=== PATIENT | male | born 1935 | race Caucasian/White ===

== ENCOUNTER → 2018-03-09 | Outpatient (CLI) | payer MEDICARE | END | disposition home or self-care (01) | LOC: ROC 09:02 | PROVIDERS: ATTEND Radiology Radiation Oncology | DX: Z08 Encounter for follow-up examination after completed treatment for malignant neoplasm (principal); C61 Malignant neoplasm of prostate | CPT/HCPCS: G0463 ==

== ENCOUNTER → 2018-06-05 | Outpatient (CLI) | payer MEDICARE | END | disposition home or self-care (01) | LOC: ROC 11:23 | PROVIDERS: ATTEND Radiology Radiation Oncology | DX: C61 Malignant neoplasm of prostate (principal) | CPT/HCPCS: G0463 ==

== ENCOUNTER → 2018-07-14 | Outpatient (CLI) | payer MEDICARE ==
[~2018-07-14] MED LIST: OMNIPAQUE 350 MG/ML, 100ML BOTTLE ONE
== END | disposition home or self-care (01) ==
LOC: PETCFH 07:55
PROVIDERS: ATTEND Urology
DX: M19.011 Primary osteoarthritis, right shoulder (principal); M19.012 Primary osteoarthritis, left shoulder; M16.0 Bilateral primary osteoarthritis of hip; M46.90 Unspecified inflammatory spondylopathy, site unspecified; M17.0 Bilateral primary osteoarthritis of knee
CPT/HCPCS: 72193; 78306; A9503; Q9967

== ENCOUNTER → 2018-11-27 | Outpatient (CLI) | payer MEDICARE | END | disposition home or self-care (01) | LOC: ROC 07:12 | PROVIDERS: ATTEND Radiology Radiation Oncology | DX: Z08 Encounter for follow-up examination after completed treatment for malignant neoplasm (principal); C61 Malignant neoplasm of prostate | CPT/HCPCS: G0463 ==

== ENCOUNTER → 2018-12-07 | Outpatient (CLI) | payer MEDICARE ==
[~2018-12-07] MED LIST changes: +ASPI81TA45 PO; +IBUP200C8 PO; +LOSA50TA14 PO; +METF500T17 PO; +MULT-717 PO; +NAPR220T77 PO; +OMEP40CA6 PO; -OMNIPAQUE 350 MG/ML, 100ML BOTTLE ONE; +VITAMIN D PO
[2018-12-07 10:26] LABS: BASOPHILS # (AUTO) 0.05 x10^3/uL (0-0.1); BASOPHILS % (AUTO) 1 % (0-1); EOSINOPHILS # (AUTO) 0.12 x10^3/uL (0-0.4); EOSINOPHILS % (AUTO) 2 % (1-7); LYMPHOCYTES # (AUTO) 1.48 x10^3/uL (1-3.4); LYMPHOCYTES % (AUTO) 24 % (22-44); MD NO; MEAN CORPUSCULAR HEMOGLOBIN 31.4 pg (27.5-34.5); MEAN CORPUSCULAR HGB CONC 33.1 g/dL (33.2-36.2); MEAN CORPUSCULAR VOLUME 95.1 fL (81-97); MEAN PLATELET VOLUME 8.2 fL (7.4-10.4); MONOCYTES # (AUTO) 0.56 x10^3/uL (0.2-0.8); MONOCYTES % (AUTO) 9 % (2-9); NEUTROPHILS # (AUTO) 4.09 x10^3/uL (1.8-6.8); NEUTROPHILS % (AUTO) 65 % (42-75); PLATELET COUNT 323 x10^3/uL (130-400); RED BLOOD COUNT 5.27 x10^6/uL (4.38-5.82); RED CELL DISTRIBUTION WIDTH 13.6 % (9.4-14.8)
[2018-12-07 10:30] LABS: MICROSCOPIC NOT IND
[2018-12-07 10:31] LABS: CULTURE INDICATED? NO
[2018-12-07 10:38] LABS: ALANINE AMINOTRANSFERASE 18 U/L (12-78); ALBUMIN 3.8 g/dL (3.4-5.0); ANION GAP 5 mmol/L (5-15); CALCIUM 9.1 mg/dL (8.5-10.1); CHLORIDE 108 mmol/L (98-107); CREATININE 0.99 mg/dL (0.7-1.3)
[2018-12-07 10:40] LABS: ALKALINE PHOSPHATASE 77 U/L (45-117); BILIRUBIN,TOTAL 0.6 mg/dL (0.2-1.0); TOTAL PROTEIN 7.3 g/dL (6.4-8.2)
== END | disposition home or self-care (01) ==
LOC: STAR 09:26
PROVIDERS: ATTEND Orthopaedic Surgery
DX: Z01.818 Encounter for other preprocedural examination (principal); M16.11 Unilateral primary osteoarthritis, right hip
CPT/HCPCS: 36415; 80053; 81003; 85025; 87081; 87147; 93005

== ENCOUNTER 2018-12-18 05:26 | Inpatient (IN) | payer MEDICARE ==
[~2018-12-18] VITALS: Ht 175.3 cm; Wt 85.4 kg
[2018-12-18] MEDS ORDERED: TRANEXAMIC ACID 100 MG/ML, 10ML ONE (06:21)
[2018-12-18] MEDS ORDERED: KETOROLAC 60 MG/2 ML ONE (06:21)
[2018-12-18] MEDS ORDERED: EPINEPHRINE 1 MG/ML, 1ML ONE (06:21)
[2018-12-18] MEDS ORDERED: SODIUM CHLORIDE 0.9% 50 ML ONE (06:21)
[2018-12-18] MEDS ORDERED: VANCOMYCIN 1,000 MG ONE (06:21)
[2018-12-18] MEDS ORDERED: ROPIvacaine/PF 0.2%, 20 ML ONE (06:21)
[2018-12-18] MEDS ORDERED: LACTATED RINGERS 1,000 ML IV SCH (06:52)
[2018-12-18 06:53] VITALS: BP 165/95
[2018-12-18] MEDS ORDERED: MIDAZOLAM 1 MG/ML, 2ML ONE (08:16)
[2018-12-18] MEDS ORDERED: ONDANSETRON 2MG/ML, 2ML ONE (08:17)
[2018-12-18] MEDS ORDERED: WATER-INJECTION,STERILE 10 ML IV ONE (08:17)
[2018-12-18] MEDS ORDERED: CEFAZOLIN 1,000 MG ONE (08:17)
[2018-12-18] MEDS ORDERED: FENTANYL PF 250 MCG/5ML ONE (08:17)
[2018-12-18] MEDS ORDERED: ROCURONIUM 10MG/ML,5ML ONE (08:17)
[2018-12-18] MEDS ORDERED: PROPOFOL 10 MG/ML, 20ML ONE (08:17)
[2018-12-18] MEDS ORDERED: DEXAMETHASONE 4 MG/ML, 1ML ONE (08:17)
[2018-12-18] MEDS ORDERED: LIDOCAINE-MPF 2% ,5ML ONE (08:17)
[2018-12-18] MEDS ORDERED: APREPITANT 40 MG CAPSULE ONE ×2 (09:00)
[2018-12-18] MEDS ORDERED: GABAPENTIN 300 MG CAPSULE ONE ×2 (09:01)
[2018-12-18] MEDS ORDERED: KETAMINE 100 MG/ML, 5ML ONE (09:13)
[2018-12-18] MEDS ORDERED: PROMETHAZINE 25 MG/ML, 1ML IV PRN (10:00)
[2018-12-18] MEDS ORDERED: HALOPERIDOL 5 MG/ML IV PRN (10:00)
[2018-12-18] MEDS ORDERED: LABETALOL 5MG/ML, 20ML IV PRN (10:00)
[2018-12-18] MEDS ORDERED: OXYcodone 5 MG/5 ML ORAL.SOL UDC PO PRN (10:00)
[2018-12-18] MEDS ORDERED: MEPERIDINE/PF 25MG/0.5ML IVPush PRN (10:00)
[2018-12-18] MEDS ORDERED: MAGNESIUM HYDROXIDE 8%, 30ML UDC PO PRN (11:00)
[2018-12-18] MEDS ORDERED: DIAZEPAM 5 MG TABLET PO PRN (11:00)
[2018-12-18] MEDS ORDERED: ONDANSETRON 2MG/ML, 2ML IV PRN (11:00)
[2018-12-18] MEDS ORDERED: BISACODYL 10 MG SUPP PR PRN (11:00)
[2018-12-18] MEDS ORDERED: ACETAMINOPHEN 650 MG/20.3 ML UDC PO SCH (11:00)
[2018-12-18] MEDS ORDERED: SENNA/DOCUSATE TABLET PO PRN (11:00)
[2018-12-18] MEDS ORDERED: PROMETHAZINE 12.5 MG SUPP PR PRN (11:00)
[2018-12-18] MEDS ORDERED: ONDANSETRON 4 MG TABLET PO PRN (11:00)
[2018-12-18] MEDS ORDERED: ZOLPIDEM 5MG TABLET PO PRN (11:00)
[2018-12-18] MEDS ORDERED: ALUMINUM/MAG/SIMETHICONE 30 ML UDC PO PRN (11:00)
[2018-12-18] MEDS ORDERED: DIPHENHYDRAMINE 50 MG CAPSULE PO PRN (11:00)
[2018-12-18] MEDS ORDERED: HYDROmorphone 1 MG/ML, 1ML INJ IV PRN (11:00)
[2018-12-18] MEDS ORDERED: HYDROcodone/APAP 10/325 MG TABLET PO PRN (11:00)
[2018-12-18] MEDS ORDERED: PROMETHAZINE 25 MG/ML, 1ML IM PRN (11:00)
[2018-12-18] MEDS ORDERED: OXYcodone 5 MG/5 ML ORAL.SOL UDC ONE (11:02)
[2018-12-18] MEDS ORDERED: HYDROmorphone 1 MG/ML, 1ML INJ ONE (11:02)
[2018-12-18] MEDS ORDERED: FENTANYL PF 100 MCG/2ML ONE (11:02)
[2018-12-18] MEDS: HYDROmorphone 2 MG/ML, 1ML IVPush PRN ×2 (11:04→11:20)
[2018-12-18] MEDS: FENTANYL PF 100 MCG/2ML IV PRN ×2 (11:10→11:15)
[2018-12-18] MEDS ORDERED: TRANEXAMIC ACID 1,000 MG in SODIUM CHLORIDE 0.9% 100 ML IVPB ONE (11:15)
[2018-12-18] MEDS ORDERED: PROMETHAZINE 25 MG/ML, 1ML ONE (11:32)
[2018-12-18 12:15] VITALS: BP 144/71
[2018-12-18] MEDS: SODIUM CHLORIDE 0.9% 1,000 ML IV SCH ×2 (12:58→20:44)
[2018-12-18 13:20] VITALS: BP 129/69
[2018-12-18] MEDS: TAMSULOSIN 0.4 MG CAP.ER.24H PO SCH (14:22)
[2018-12-18] MEDS: ACETAMINOPHEN 325 MG TABLET PO SCH ×2 (14:22→20:44)
[2018-12-18] MEDS: CEFAZOLIN PMX 2GM/50ML 50 ML IVPB SCH (16:56)
[2018-12-18] MEDS ORDERED: metFORMIN 500 MG TABLET ONE (17:34)
[2018-12-18] MEDS: metFORMIN 500 MG TABLET PO SCH (17:51)
[2018-12-18] MEDS: ASPIRIN 81 MG TABLET EC PO SCH (17:51)
[2018-12-18] MEDS: DOCUSATE 100 MG CAPSULE PO SCH (20:44)
[2018-12-18] MEDS: KETOROLAC 30 MG/1 ML IV SCH (20:44)
[2018-12-18 21:02] VITALS: BP 99/57
[2018-12-18 23:46] VITALS: BP 111/59
[2018-12-19] MEDS: CEFAZOLIN PMX 2GM/50ML 50 ML IVPB SCH (00:01)
[2018-12-19] MEDS: ACETAMINOPHEN 325 MG TABLET PO SCH ×2 (02:35→08:18)
[2018-12-19 04:33] VITALS: BP 105/64
[2018-12-19] MEDS: SODIUM CHLORIDE 0.9% 1,000 ML IV SCH ×2 (05:14→11:35)
[2018-12-19] MEDS: ASPIRIN 81 MG TABLET EC PO SCH (05:15)
[2018-12-19] MEDS ORDERED: OMEPRAZOLE 20 MG CAPSULE.DR PO SCH (06:00)
[2018-12-19] MEDS ORDERED: DEXAMETHASONE 4 MG/ML, 1ML IVPush SCH (06:00)
[2018-12-19 07:15] VITALS: BP 111/61
[2018-12-19] MEDS: KETOROLAC 30 MG/1 ML IV SCH (08:17)
[2018-12-19] MEDS: metFORMIN 500 MG TABLET PO SCH (08:18)
[2018-12-19] MEDS: DOCUSATE 100 MG CAPSULE PO SCH (08:18)
[2018-12-19] MEDS: TAMSULOSIN 0.4 MG CAP.ER.24H PO SCH (08:18)
[2018-12-19] MEDS ORDERED: LOSARTAN 50MG TABLET PO SCH (09:00)
[2018-12-19] MEDS ORDERED: MULTIVITAMINS/MINERALS TABLET PO SCH (09:00)
[2018-12-19 11:26] VITALS: BP 104/63
[2018-12-19] MEDS ORDERED: HYDR-3653 PO (13:06)
== END 2018-12-19 13:25 | disposition home or self-care (01) | DRG 470 ==
LOC: ORIP 05:26 → 4NOR 12:15 → DCLOUNGE 12-19 13:05
PROVIDERS: ADMIT Orthopaedic Surgery; ATTEND Orthopaedic Surgery
PROC: 0SR906Z Replacement of Right Hip Joint with Oxidized Zirconium on Polyethylene Synthetic Substitute, Open Approach (ICD-10-PCS; principal; 2018-12-18 09:15)
DX: M16.11 Unilateral primary osteoarthritis, right hip (principal); I10 Essential (primary) hypertension; E11.9 Type 2 diabetes mellitus without complications
CPT/HCPCS: 36415; 72170; 82962; 85014; 85018; 86850; 86900; C1713; G0378; J0171; J0690; J1100; J1170; J1885; J2250; J2405; J2550; J2704; J2795; J3010; J3370; J8501; C1776; J7030; J7120

== ENCOUNTER → 2019-01-16 | Outpatient (CLI) | payer MEDICARE ==
[~2019-01-16] MED LIST changes: +HYDR-3653 PO
== END | disposition home or self-care (01) ==
LOC: PETCFH 13:45
PROVIDERS: ATTEND Radiology Radiation Oncology
DX: C61 Malignant neoplasm of prostate (principal); Z96.641 Presence of right artificial hip joint
CPT/HCPCS: 78815; A9588

== ENCOUNTER → 2019-01-24 | Outpatient (CLI) | payer MEDICARE | END | disposition home or self-care (01) | LOC: ROC 07:12 | PROVIDERS: ATTEND Radiology Radiation Oncology | DX: C61 Malignant neoplasm of prostate (principal); E11.9 Type 2 diabetes mellitus without complications; Z79.84 Long term (current) use of oral hypoglycemic drugs; Z79.899 Other long term (current) drug therapy | CPT/HCPCS: G0463 ==